=== PATIENT | female | born 1995 | race Caucasian/White ===

== ENCOUNTER 2024-03-21 04:13 | Emergency (ER) | payer OTHER ==
[~2024-03-21] VITALS: Ht 162.6 cm; Wt 86.2 kg
[2024-03-21] MEDS ORDERED: MORPHINE SULFATE 4 MG/1 ML DISP.SYRIN ONE (04:35)
[2024-03-21] MEDS ORDERED: ONDANSETRON 4 MG/2 ML VIAL ONE (04:35)
[2024-03-21] MEDS: MORPHINE SULFATE 4 MG/1 ML DISP.SYRIN IV ONE (04:45)
[2024-03-21] MEDS: IV NORMAL SALINE 1000 ML BAG IV ONE ×2 (04:45→05:10)
[2024-03-21] MEDS: ONDANSETRON 4 MG/2 ML VIAL IV ONE (04:45)
[2024-03-21] MEDS ORDERED: PANTOPRAZOLE SODIUM 40 MG VIAL ONE (05:06)
[2024-03-21] MEDS: PANTOPRAZOLE SODIUM IV 40 MG in IV DEXTROSE 5% 100 ML IV ONE (05:10)
[2024-03-21 05:19] LABS: CALCIUM 8.5 mg/dL (8.5-10.1); CREATININE 0.7 mg/dL (0.6-1.3); POTASSIUM 3.7 mmol/L (3.5-5.1)
[2024-03-21 05:21] LABS: BASOPHILS # (AUTO) 0.1 K/UL (0.0-0.2); BASOPHILS % (AUTO) 0.3 % (0.0-2.0); EOSINOPHILS % (AUTO) 0.2 % (0.0-7.0); HEMOGLOBIN 13.8 g/dL (10.9-14.3); LYMPHOCYTES # (AUTO) 1.1 K/uL (0.8-4.8); LYMPHOCYTES % (AUTO) 6.8 % (20.5-51.5); MEAN CORPUSCULAR HEMOGLOBIN 28.7 uug (24.7-32.8); MEAN CORPUSCULAR HGB CONC 32 g/dL (32.3-35.6); MEAN CORPUSCULAR VOLUME 89.2 fL (75.5-95.3); MONOCYTES # (AUTO) 0.4 K/uL (0.1-1.30); MONOCYTES % (AUTO) 2.4 % (0.0-11.0); NEUTROPHILS # (AUTO) 14.6 K/uL (1.8-8.9); NEUTROPHILS % (AUTO) 90.3 % (38.5-71.5); PLATELET COUNT (AUTO) 507 K/uL (179-408); RED BLOOD CELL COUNT(AUTO) 4.82 MIL/uL (3.63-4.92); RED CELL DISTRIBUTION WIDTH 12.8 % (12.3-17.7); WHITE BLOOD COUNT (AUTO) 16.2 K/uL (3.8-11.8)
[2024-03-21 05:24] LABS: DIFFERENTIAL COMMENT 1
[2024-03-21 05:25] LABS: ALBUMIN 3.6 g/dL (3.4-5.0); BILIRUBIN,DIRECT 0.1 mg/dL (0.0-0.2); BILIRUBIN,TOTAL 0.4 mg/dL (0.2-1.0); TOTAL PROTEIN, SERUM 6.7 g/dL (6.4-8.2)
[2024-03-21 06:00] LABS: *BILIRUBIN,URIN NEGATIVE (NEGATIVE); *CLARITY,URINE SLIGHTLY CLOUDY (CLEAR); *COLOR,URINE YELLOW (YELLOW); *KETONES,URINE TRACE (NEGATIVE); *PROTEIN,URINE NEGATIVE (NEGATIVE); *UROBILINOGEN,URINE 0.2 E.U./dl (NORMAL); LEUKOCYTE ESTERASE ,URINE NEGATIVE (NEGATIVE); NITRITE, URINE NEGATIVE (NEGATIVE); PH,URINE 8.5 (5.0-8.0); UGLUCOSE NEGATIVE (NEGATIVE)
[2024-03-21 06:02] LABS: *BLOOD, URINE TRACE (NEGATIVE)
[2024-03-21 06:03] LABS: *URINE HCG, QUAL NEGATIVE (NEGATIVE)
[2024-03-21] MEDS ORDERED: CEFTRIAXONE /D5W 50ML IVPB **ER PYXIS IV ONE (06:25)
[2024-03-21] MEDS: CEFTRIAXONE 1 G in IV DEXTROSE 5% 50 ML IV ONE (06:30)
[2024-03-21 07:11] LABS: BACTERIA,URINE FEW /HPF (NONE SEEN); RBC,URINE 0-3 /HPF (0-3); SQUAMOUS EPITHELIAL CELL,UR MODERATE /HPF (NONE SEEN); WBC,URINE NONE SEEN /HPF (0-3)
[2024-03-21 07:12] LABS: URINE AMORPHOUS PHOSPHATES MANY /HPF
[2024-03-21] MEDS ORDERED: ONDA4TAB5 PO (08:16)
[2024-03-21] MEDS ORDERED: CYCL5TAB PO (08:16)
[2024-03-21] MEDS ORDERED: IBUP-1955 PO (08:17)
[2024-03-21 08:29] VITALS: BP 119/66; O2SAT 98
== END 2024-03-21 08:31 | disposition home or self-care (01) ==
LOC: ER 04:26
DX: R10.11 Right upper quadrant pain (principal); R11.2 Nausea with vomiting, unspecified; R10.2 Pelvic and perineal pain; Z79.1 Long term (current) use of non-steroidal anti-inflammatories (NSAID); Z79.899 Other long term (current) drug therapy
CPT/HCPCS: 36415; 83690; 84484; 84703; 85025; 93005; A4606; A4663; J0696; J2270; J2405; J2470; J7040